=== PATIENT | male | born 1985 | race Caucasian/White ===

== ENCOUNTER 2018-05-19 10:20 | Emergency (ER) | payer MEDICAID ==
[~2018-05-19] VITALS: Ht 203.2 cm; Wt 115.7 kg
[2018-05-19] MEDS ORDERED: SODIUM CHLORIDE 0.9% 2,000 ML IV ONE (11:51)
[2018-05-19] MEDS ORDERED: ONDANSETRON HCL 4 MG/2 ML VIAL IV ONE (12:00)
[2018-05-19] MEDS ORDERED: HYDROmorphone HCL 2 MG/ML VL IM ONE (12:00)
[2018-05-19] MEDS ORDERED: IOHEXOL 300 MG/ML 100ML BOTTLE IJ ONE (12:08)
[2018-05-19] MEDS ORDERED: BACITRACIN TOP OINT 1 UD PKG TOP ONE (12:15)
[2018-05-19 12:26] LABS: Basophils # (auto) 0 uL; Basophils % (auto) 0.3 % (0.0-2.0); Eosinophils # (auto) 0 uL; Eosinophils % (auto) 0.5 % (0.0-7.0); Hematocrit 44.1 % (41.0-53.0); Hemoglobin 15.2 g/dL (13.5-17.5); Lymphocytes # (auto) 1.2 uL; Lymphocytes % (auto) 12.4 % (10.0-50.0); Mean Corpuscular Hemoglobin 32.1 pg (28.0-32.0); Mean Corpuscular Hgb Conc. 34.4 g/dL (32.0-36.0); Mean Corpuscular Volume 93.4 fL (80.0-100.0); Monocytes # (auto) 0.5 uL; Monocytes % (auto) 5.2 % (0.0-12.0); Neutrophils # (auto) 8.1 uL; Neutrophils % (auto) 81.6 % (37.0-80.0); Nucleated Red Blood Cells % 0.1 %; Platelet Count (auto) 213 10^3/uL (140-450); Red Blood Cells 4.73 10^6/uL (4.5-5.90); Red Cell Distribution Width 13.1 % (11.8-14.3); White Blood Cell 9.9 10^3/uL (4.4-10.8)
[2018-05-19 12:46] LABS: Potassium 3.8 mmol/L (3.5-5.1)
[2018-05-19 12:49] LABS: BUN/Creatinine Ratio 12.6; Bilirubin, Total 0.7 mg/dL (0.2-1.0); Total Protein 7.2 g/dL (6.4-8.2)
[2018-05-19 12:51] LABS: Partial Thromboplastin Time 26.2 sec (23.78-33.04); Prothrombin Time 10.7 sec (9.27-12.13)
[2018-05-19 13:02] VITALS: BP 104/58
== END 2018-05-19 13:40 | disposition home or self-care (01) ==
LOC: ER 10:20
DX: K40.90 Unilateral inguinal hernia, without obstruction or gangrene, not specified as recurrent (principal); F17.210 Nicotine dependence, cigarettes, uncomplicated
CPT/HCPCS: 36415; 71046; 74177; 76705; 80053; 85025; 85610; 85730; 99284; Q9967

== ENCOUNTER 2022-04-08 16:18 | Emergency (ER) | payer BC, MEDICAID ==
[~2022-04-08] VITALS: Ht 205.7 cm; Wt 116.6 kg
[2022-04-08 18:37] VITALS: BP 121/78
[2022-04-08] MEDS ORDERED: BACITRACIN TOP OINT 1 UD PKG TOP ONE (19:30)
[2022-04-08] MEDS ORDERED: CLINDAMYCIN 600 MG/4 ML VL IM ONE (19:30)
[2022-04-08] MEDS ORDERED: IBUP800T26 PO (19:38)
[2022-04-08] MEDS ORDERED: CEPH250C28 PO (19:38)
[2022-04-08] MEDS ORDERED: cefTRIAXone SOD 1,000 MG VL IM ONE (20:00)
== END 2022-04-08 20:03 | disposition home or self-care (01) ==
LOC: ER 16:18
DX: S81.812A Laceration without foreign body, left lower leg, initial encounter (principal); V86.56XA Driver of dirt bike or motor/cross bike injured in nontraffic accident, initial encounter; Y93.89 Activity, other specified; Y92.89 Other specified places as the place of occurrence of the external cause; Y99.8 Other external cause status
CPT/HCPCS: 12002; 73590; 96372; 99283; J0696